=== PATIENT | female | born 1995 | race Caucasian/White ===

== ENCOUNTER 2018-02-28 16:37 | Emergency (ER) | payer SELFPAY ==
[~2018-02-28] VITALS: Ht 170.2 cm; Wt 90.9 kg
[2018-02-28 16:48] VITALS: Ht 170.2 cm; Wt 90.9 kg
[2018-02-28] MEDS ORDERED: TORADOL10 MG PO (20:57)
[2018-02-28 21:05] VITALS: BP 132/79
== END 2018-02-28 21:05 | disposition home or self-care (01) ==
LOC: D.ER 16:37
DX: S61.211A Laceration without foreign body of left index finger without damage to nail, initial encounter (principal); W26.0XXA Contact with knife, initial encounter; Y93.89 Activity, other specified; Y92.019 Unspecified place in single-family (private) house as the place of occurrence of the external cause

== ENCOUNTER 2018-12-09 00:10 | Emergency (ER) | payer OTHER ==
[~2018-12-09] VITALS: Ht 170.2 cm; Wt 100.5 kg
[~2018-12-09 00:10] MED LIST: TORADOL10 MG PO
[2018-12-09 00:16] VITALS: Ht 170.2 cm; Wt 100.5 kg
[2018-12-09 02:07] LABS: APPEARANCE CLEAR (CLEAR); BILIRUBIN NEGATIVE (NEGATIVE); COLOR YELLOW (YELLOW); GLUCOSE NEGATIVE (NEGATIVE); KETONE SMALL mg/dL (NEGATIVE); NITRITE NEGATIVE (NEGATIVE); PROTEIN NEGATIVE (NEGATIVE); SPECIFIC GRAVITY 1.015 (1.005-1.020); UROBILINOGEN NORMAL (NORMAL)
[2018-12-09] MEDS ORDERED: HYDROCODON-ACE1 EAC7 PO (02:28)
[2018-12-09 02:41] VITALS: BP 121/72
== END 2018-12-09 02:41 | disposition home or self-care (01) ==
LOC: D.ER 00:10
PROVIDERS: Emergency Medicine
DX: O26.891 Other specified pregnancy related conditions, first trimester (principal); Z3A.01 Less than 8 weeks gestation of pregnancy; R10.30 Lower abdominal pain, unspecified

== ENCOUNTER 2019-01-15 14:00 | Emergency (ER) | payer OTHER ==
[~2019-01-15] VITALS: Ht 170.2 cm; Wt 90.9 kg
[~2019-01-15 14:00] MED LIST changes: +HYDROCODON-ACE1 EAC7 PO
[2019-01-15 14:36] VITALS: Ht 170.2 cm; Wt 90.9 kg
[2019-01-15] MEDS ORDERED: PRENAVITE1 TAB PO (14:42)
[2019-01-15 15:22] LABS: APPEARANCE CLEAR (CLEAR); BILIRUBIN NEGATIVE (NEGATIVE); COLOR YELLOW (YELLOW); GLUCOSE NEGATIVE (NEGATIVE); KETONE NEGATIVE (NEGATIVE); NITRITE NEGATIVE (NEGATIVE); PROTEIN NEGATIVE (NEGATIVE); UROBILINOGEN NORMAL (NORMAL)
[2019-01-15 15:23] LABS: RED CELLS - URINE OCC /hpf (0-5); WHITE CELLS - URINE 0-5 /hpf (0-5)
[2019-01-15 15:24] LABS: BACTERIA FEW /hpf (NONE SEEN); EPITHELIAL CELLS 0-5 /hpf (0-5)
[2019-01-15 17:35] LABS: ALBUMIN 3.2 g/dL (3.4-5.0); ALKALINE PHOSPHATASE 56 U/L (46-116); ALT (SGPT) 26 U/L (10-68); BILIRUBIN - TOTAL 0.24 mg/dL (0.2-1.3); CALC OSMOLALITY 273 mosm/kg (275-300); CALCIUM 8.9 mg/dL (8.5-10.1); CARBON DIOXIDE 25.3 mmol/L (21.0-32.0); CHLORIDE - SERUM 105 mmol/L (98-107); CREATININE - SERUM 0.5 mg/dL (0.6-1.3); GLUCOSE 82 mg/dL (74-106); POTASSIUM - SERUM 3.9 mmol/L (3.5-5.1); PROTEIN - SERUM 6.8 g/dL (6.4-8.2); SODIUM 139 mmol/L (136-145); UREA NITROGEN 4 mg/dL (7-18); eGFR NON AFRICAN AMERICAN > 90 mL/min (90-120)
[2019-01-15 17:47] LABS: BASOPHILS 0.1 % (0-2); EOSINOPHILS 0.8 % (0-7); HEMATOCRIT 36.6 % (36.0-48.0); HEMOGLOBIN 11.8 g/dL (12-16); IMMATURE GRANULOCYTES 0.3 % (0-5); LYMPHOCYTES 18.5 % (15-50); MCH 25.1 pg (26.0-34.0); MCHC 32.2 g/dL (31.0-37.0); MCV 77.7 fL (80.0-100.0); MEAN PLATELET VOLUME 10.5 fL (7.4-10.4); MONOCYTES 5.6 % (2-11); NEUTROPHILS 74.7 % (40-80); PLATELET COUNT 213 10x3/uL (130-400); RBC 4.71 10x6/uL (4.00-5.40); RDW 16.7 % (11.5-14.5); WBC 10.3 10x3/uL (4.8-10.8)
[2019-01-15 17:57] LABS: HCG - QUANTITATIVE (MATERNAL) 33703 mIU/mL
[2019-01-15 19:34] VITALS: BP 129/70
== END 2019-01-15 19:34 | disposition home or self-care (01) ==
LOC: D.ER 14:00
PROVIDERS: Family Medicine
DX: O26.891 Other specified pregnancy related conditions, first trimester (principal); Z3A.14 14 weeks gestation of pregnancy; R10.9 Unspecified abdominal pain

== ENCOUNTER 2019-03-06 20:18 | Outpatient (CLI) | payer OTHER ==
[2019-01-15 14:36] VITALS: BMI 31.4
[~2019-03-06 20:18] MED LIST changes: +PRENAVITE1 TAB PO
[2019-03-06 21:48] LABS: APPEARANCE HAZY (CLEAR); BILIRUBIN NEGATIVE (NEGATIVE); COLOR YELLOW (YELLOW); GLUCOSE NEGATIVE (NEGATIVE); KETONE NEGATIVE (NEGATIVE); NITRITE NEGATIVE (NEGATIVE); PROTEIN NEGATIVE (NEGATIVE); UROBILINOGEN NORMAL (NORMAL)
[2019-03-06 21:52] LABS: RED CELLS - URINE OCC /hpf (0-5); WHITE CELLS - URINE 0-5 /hpf (0-5)
[2019-03-06 21:53] LABS: BACTERIA FEW /hpf (NONE SEEN); EPITHELIAL CELLS 0-5 /hpf (0-5)
== END 2019-03-06 22:10 | disposition home or self-care (01) ==
LOC: D.LDO 20:18
PROVIDERS: ATTEND Obstetrics & Gynecology
DX: O26.899 Other specified pregnancy related conditions, unspecified trimester (principal); Z3A.00 Weeks of gestation of pregnancy not specified; R42 Dizziness and giddiness; R10.9 Unspecified abdominal pain

== ENCOUNTER 2019-03-28 22:51 | Outpatient (CLI) | payer OTHER ==
[2019-01-15 14:36] VITALS: BMI 31.4
[2019-03-28 23:44] LABS: APPEARANCE HAZY (CLEAR); BILIRUBIN NEGATIVE (NEGATIVE); COLOR YELLOW (YELLOW); GLUCOSE NEGATIVE (NEGATIVE); KETONE LARGE mg/dL (NEGATIVE); NITRITE NEGATIVE (NEGATIVE); PROTEIN NEGATIVE (NEGATIVE); UROBILINOGEN NORMAL (NORMAL)
[2019-03-28 23:47] LABS: BACTERIA MODERATE /hpf (NONE SEEN); EPITHELIAL CELLS 0-5 /hpf (0-5); RED CELLS - URINE 0-5 /hpf (0-5)
== END 2019-03-29 01:45 ==
LOC: D.LDO 22:51 → D.LD 22:54 → D.LDO 03-29 01:45
PROVIDERS: ATTEND Student in an Organized Health Care Education/Training Program
DX: O26.892 Other specified pregnancy related conditions, second trimester (principal); Z3A.24 24 weeks gestation of pregnancy; R05 Cough; R50.9 Fever, unspecified

== ENCOUNTER 2019-06-19 23:50 | Outpatient (CLI) | payer OTHER ==
[2019-01-15 14:36] VITALS: BMI 31.4
[2019-06-20 00:54] LABS: UDS - AMPHET NEGATIVE QUAL (NEGATIVE); UDS - BARB POSITIVE QUAL (NEGATIVE); UDS - BENZO NEGATIVE QUAL (NEGATIVE); UDS - COCAINE NEGATIVE QUAL (NEGATIVE); UDS - OPIATE NEGATIVE QUAL (NEGATIVE); UDS - PCP NEGATIVE QUAL (NEGATIVE); UDS - THC NEGATIVE QUAL (NEGATIVE)
[2019-06-20 00:56] LABS: APPEARANCE CLEAR (CLEAR); BILIRUBIN NEGATIVE (NEGATIVE); COLOR YELLOW (YELLOW); GLUCOSE NEGATIVE (NEGATIVE); KETONE NEGATIVE (NEGATIVE); NITRITE NEGATIVE (NEGATIVE); PROTEIN NEGATIVE (NEGATIVE); SPECIFIC GRAVITY 1.015 (1.005-1.020); UROBILINOGEN NORMAL (NORMAL)
[2019-06-20 00:57] LABS: BACTERIA FEW /hpf (NEGATIVE); EPITHELIAL CELLS 0-5 /hpf (0-5); RED CELLS - URINE NONE SEEN /hpf (0-5); WHITE CELLS - URINE 0-5 /hpf (NEGATIVE)
== END 2019-06-20 01:30 | disposition home or self-care (01) ==
LOC: D.LD 23:50 → D.LDO 23:50
PROVIDERS: ATTEND Obstetrics & Gynecology
DX: O26.899 Other specified pregnancy related conditions, unspecified trimester (principal); Z3A.00 Weeks of gestation of pregnancy not specified; R10.9 Unspecified abdominal pain

== ENCOUNTER → 2019-07-01 13:54 | Outpatient (CLI) | payer OTHER ==
[2019-01-15 14:36] VITALS: BMI 31.4
== END | disposition home or self-care (01) ==
LOC: D.LDO 13:54
PROVIDERS: ATTEND Student in an Organized Health Care Education/Training Program
DX: O26.893 Other specified pregnancy related conditions, third trimester (principal); Z3A.38 38 weeks gestation of pregnancy; M54.9 Dorsalgia, unspecified

== ENCOUNTER 2019-07-04 20:13 | Inpatient (IN) | payer OTHER ==
[~2019-07-04] VITALS: Ht 167.6 cm; Wt 95.5 kg
[2019-07-04] MEDS ORDERED: PROTONIX40 MG PO (21:15)
[2019-07-04 22:51] LABS: HEMATOCRIT 34.9 % (36.0-48.0); HEMOGLOBIN 10.7 g/dL (12-16); MCH 22.8 pg (26.0-34.0); MCHC 30.7 g/dL (31.0-37.0); MCV 74.4 fL (80.0-100.0); MEAN PLATELET VOLUME 11.6 fL (7.4-10.4); RBC 4.69 10x6/uL (4.00-5.40); RDW 15.4 % (11.5-14.5); WBC 13.2 10x3/uL (4.8-10.8)
[2019-07-04 23:04] LABS: UDS - AMPHET NEGATIVE QUAL (NEGATIVE); UDS - BARB NEGATIVE QUAL (NEGATIVE); UDS - BENZO NEGATIVE QUAL (NEGATIVE); UDS - COCAINE NEGATIVE QUAL (NEGATIVE); UDS - OPIATE NEGATIVE QUAL (NEGATIVE); UDS - PCP NEGATIVE QUAL (NEGATIVE); UDS - THC NEGATIVE QUAL (NEGATIVE)
[2019-07-05 00:54] VITALS: BP 132/79; Ht 167.6 cm; Wt 95.5 kg
[2019-07-05 15:15] LABS: UDS - AMPHET NEGATIVE QUAL (NEGATIVE); UDS - BARB NEGATIVE QUAL (NEGATIVE); UDS - BENZO NEGATIVE QUAL (NEGATIVE); UDS - COCAINE NEGATIVE QUAL (NEGATIVE); UDS - OPIATE NEGATIVE QUAL (NEGATIVE); UDS - PCP NEGATIVE QUAL (NEGATIVE); UDS - THC NEGATIVE QUAL (NEGATIVE)
--- NOTE | 2019-07-06 02:40 | NUR ---
PT RINGS CALL LIGHT REQUESTING A PERIPAD CHANGE. THIS RN TO BEDSIDE. PT ASSISTED W/PERIPAD CHANGE. CURRENT PERIPAD W/SMALL RUBRA LOCHIA NOTED. CLEAN PAD PLACED. PT DENIES PAIN OR NEEDS AT THIS TIME. SIG OTHER REMAINS AT BEDSIDE.
--- NOTE | 2019-07-06 04:30 | NUR ---
ROUNDS MADE. PT RESTING QUIETLY W/EYES CLOSED TO RT SIDE. RESP EVEN AND UNLABORED. PT LEFT UNDISTURBED AT THIS TIME.
--- NOTE | 2019-07-06 06:07 | NUR ---
PT. UP TO BATHROOM TO VOID. GAIT STEADY. DENIES ANY NUMBNESS IN LEGS. VOIDED LARGE AMT. SELF JONELLE CARE TAUGHT AND PT. STATES UNDERSTANDING. JONELLE PADS AND PANTIES APPLIED. LOCHIA RUBRA SCANT TO MOD. FUNDUS FIRM AND MIDLINE U/2.
[2019-07-06 07:00] LABS: BASOPHILS 0.1 % (0-2); EOSINOPHILS 0.6 % (0-7); HEMATOCRIT 29.3 % (36.0-48.0); IMMATURE GRANULOCYTES 0.4 % (0-5); LYMPHOCYTES 12.7 % (15-50); MCH 22.7 pg (26.0-34.0); MCHC 30.7 g/dL (31.0-37.0); MCV 73.8 fL (80.0-100.0); MEAN PLATELET VOLUME 11.3 fL (7.4-10.4); MONOCYTES 7.9 % (2-11); NEUTROPHILS 78.3 % (40-80); PLATELET COUNT 251 10x3/uL (130-400); RBC 3.97 10x6/uL (4.00-5.40); RDW 15.2 % (11.5-14.5); WBC 15.8 10x3/uL (4.8-10.8)
--- NOTE | 2019-07-06 07:12 | NUR ---
no bedside shift report give as patient is currently sleeping. pt left undisturbed at this time to allow for rest.
[2019-07-06 08:11] LABS: RAPID PLASMA REAGIN Non Reactive (Non Reactive)
[2019-07-06 10:15] VITALS: BP 123/78
--- NOTE | 2019-07-06 10:15 | NUR ---
AM ASSESSMENT COMPLETED. SEE FLOWSHEET. PT DENIES HEAVY BLEEDING OR PASSING CLOTS. PT STATES SHE WOULD LIKE TO WAIT TO TAKE ANY KIND OF PAIN MEDICATION, AND SHE WANTS TO THINK ABOUT TAKING THE MMR VACCINE. VACCINE INFORMATION SHEETS PROVIDED TO PT. SIG OTHER ASLEEP ON SOFA. PT DENIES ALL OTHER NEEDS AT THIS TIME.
--- NOTE | 2019-07-06 11:00 | NUR ---
DR. TORRES ON UNIT, MD TO ROOM TO SPEAK WITH PT. MD WILL DISCHARGE PT HOME TOMORROW.
--- NOTE | 2019-07-06 12:43 | NUR ---
PT SLIP DUMPER LIGHT. REQUESTS AND RECEIVES BABY BLANKET AND FORMULA.
--- NOTE | 2019-07-06 15:00 | NUR ---
PT IN SHOWER, CLEAN LINENS PROVIDED. PT IS DRESSED IN OWN CLOTHING. DENIES ALL OTHER NEEDS AT THIS TIME. SRUP X2, CALL LIGHT AND PHONE WITHIN REACH.
--- NOTE | 2019-07-06 15:54 | NUR ---
PT HAS CALLED OUT [employer] LIGHT REQUESTING PAIN MEDICATION FOR ABD CRAMPING, AND LOWER BACK PAIN. EMAR REVIEWED AND EXPLAINED TO PT IBUPROFEN IS ORDERED FOR PAIN. PT AGREES. IBUPROFEN 600MG ONE PO GIVEN FOR C/O ABD CRAMPING, AND LOWER BACK PAIN. SIG OTHER ON SOFA FEEDING AT THIS TIME. PT DENIES ALL OTHER NEEDS. SRUP X2, CALL LIGHT AND PHONE WITHIN REACH.
--- NOTE | 2019-07-06 19:16 | NUR ---
BEDSIDE REPORT RECEIVED FROM OFF GOING NURSE IVA RIVAS. PT RESTING IN BED WITH INFANT IN HER ARMS. NO DISTRESS. PT DENIES CAITLIN COMPLAINTS OR NEEDS AT THIS TIME. INSTRUCTED PT TO NOTIFY NURSE WITH ANY PROBLEMS, NEEDS, OR CONCERNS. VERBALIZED UNDERSTANDING. BED IN LOW POSITION. SR UP X2. CALL LIGHT WITHIN PTS REACH.
[2019-07-06 20:00] VITALS: BP 131/78
--- NOTE | 2019-07-06 20:00 | NUR ---
PT RESTING IN BED HOLDING . VS OBTAINED. PT DENIES ANY COMPLAINTS OR NEEDS AT THIS TIME. BED IN LOW POSITION. SR UP X2. CALL LIGHT WITHIN PTS REACH.
--- NOTE | 2019-07-06 21:00 | NUR ---
PT RESTING IN BED WITH INFANT. S/O IN ROOM. ASSESSMENT COMPLETE PER FLOWSHEET. BBS CLEAR. ABDOMEN SOFT. FUNDUS FIRM AND AND 1 BELOW UMBILICUS. ACTIVE BS X4 QUADRANTS. PT REPORTS HAVING A SMALL AMOUNT OF LOCHIA. TRACE EDEMA NOTED TO BLE. POC DISCUSSED. QUESTIONS ANSWERED. PT INSTRUCTED TO NOTIFY NURSE WITH ANY PROBLEMS, NEEDS, OR CONCERNS. VERBALIZED UNDERSTANDING. BED IN LOW POSITION. SR UP X2. CALL LIGHT WITHIN PTS REACH.
--- NOTE | 2019-07-06 22:16 | NUR ---
PT RESTING IN BED WITH INFANT. PT DENIES ANY COMPLAINTS. PADS AND PANTIES PROVIDED. INSTRUCTED PT TO NOTIFY NURSE WITH ANY PROBLEMS, NEEDS, OR CONCERNS. VERBALIZED UNDERSTANDING. BED IN LOW POSITION. SR UP X2. CALL LIGHT WITHIN PTS REACH.
--- NOTE | 2019-07-07 00:30 | NUR ---
PT RESTING IN BED HOLDING . NO DISTRESS NOTED. PT DENIES ANY COMPLAINTS OR NEEDS AT THIS TIME. INSTRUCTED PT TO NOTIY NURSE WITH ANY PROBLEMS, NEEDS, OR CONCERNS. VERBALIZED UNDERSTANDING. BED IN LOW POSITION. SR UP X2. CALL LIGHT WITHIN PTS REACH.
--- NOTE | 2019-07-07 02:04 | NUR ---
PT RESTING IN BED FEEDING . S/O AT BEDSIDE. PT C/O ABD CRAMPING. MOTRIN 600MG GIVEN. LEMON [place] SODA PROVIDED. NO OTHER REQUEST MADE. INSTRUCTED PT TO NOTIFY NURSE IF MEDICATION NOT EFFECTIVE OR WITH ANY OTHER PROBLEMS, NEEDS, OR CONCERNS. VERBALIZED UNDERSTANDING. BED IN LOW POSITION. SR UP X2. CALL LIGHT WITHIN PTS REACH.
--- NOTE | 2019-07-07 02:45 | NUR ---
PT RESTING IN BED HOLDING . PT REPORTS HER PAIN IS BETTER. PT APPEARS TIRED AND HAS NOT SLEPT AT ALL DURING THIS SHIFT. PT ENCOURAGED TO SEND INFANT BACK TO NBN SO SHE AND S/O CAN GET SOME SLEEP. BOTH VERBALIZED THAT THEY WOULD LIKE TO DO THIS. INSTRUCTED PT TO CALL NBN WHEN SHE AWAKENS AND THEY (NBN) WILL BRING BACK TO THEM. PT ALSO INSTRUCTED TO NOTIFY NURSE WITH ANY PROBLEMS, NEEDS, OR CONCERNS. VERBALIZED UNDERSTANDING. BED IN LOW POSITION. SR UP X2. CALL LIGHT WITHIN PTS REACH.
--- NOTE | 2019-07-07 03:00 | NUR ---
INFANT BACK TO NBN VIA OPEN CRIB. NO DISTRESS NOTED.
--- NOTE | 2019-07-07 04:20 | NUR ---
PT RESTING IN BED WITH EYES CLOSED. NO DISTRESS NOTED. BED IN LOW POSITION. SR UP X2. CALL LIGHT WITHIN PTS REACH.
--- NOTE | 2019-07-07 06:05 | NUR ---
PT RESTING IN BED WITH EYES CLOSED. NO DISTRESS NOTED. BED IN LOW POSITION. SR UP X2. CALL LIGHT WITHIN PTS REACH.
[2019-07-07 07:11] VITALS: BP 131/78
--- NOTE | 2019-07-07 07:11 | NUR ---
BEDSIDE REPORT RECEIVED, AM ASSESSMENT COMPLETED. PT SITTING UPRIGHT IN BED, SMILING, RESP EVEN AND UNLABORED, LUNGS CTAB, HEART RRR NO MURMUR RUBS OR CLICKS AUSCULTATED, ABD SOFT AND MILDLY TENDER TO LIGHT PALPATION, FUNDUS FIRM AT U/2 AND MIDLINE, LOCHIA RUBRA LIGHT AMOUNT, PT DENIES CLOTS AT THIS TIME, SELF PERFORMS PERICARE WITH BETADINE/WATER WASH POST VOID, VOIDS WITHOUT DIFFICULTY, + FLATUS, MELGAR FREELY, NEGATIVE NATHALIA'S SIGN B LE, PEDAL PULSES STRONG AND EQUAL BILATERALLY. CALL LIGHT IN EASY REACH, REVIEWED PLAN OF CARE, STATES UNDERSTANDING OF ALL INFORMATION PROVIDED, WILL MONITOR.
--- NOTE | 2019-07-07 08:13 | NUR ---
ROUNDS COMPLETED, CONSUMED 80% BREAKFAST TRAY, DENIES NEEDS OR CONCERNS, WILL MONITOR. CALL LIGHT IN EASY REACH.
--- NOTE | 2019-07-07 09:14 | NUR ---
ROUNDS COMPLETED, PT SITTING UPRIGHT IN BED, FAMILY VISITING, NAD NOTED. LEMON [place] SODA PROVIDED UPON REQUEST, NAD NOTED. NO OTHER NEEDS VOICED, STATES DOES NOT WANT RUBELLA VACCINATION AFTER REVIEWING NON IMMUNE STATUS AND RATIONALE FOR ADMINISTRATION. WILL MONITOR.
--- NOTE | 2019-07-07 10:35 | NUR ---
ROUNDS COMPLETED, NAD NOTED, RESP EVEN AND UNLABORED, CALL LIGHT IN EASY REACH.
--- NOTE | 2019-07-07 11:35 | NUR ---
REVIEWED DISCHARGE INSTRUCTIONS WITH PT, HANDOUTS PROVIDED FOR REVIEW AT HOME, QUESTIONS ANSWERED, UNIT PP GIFT BOX PROVIDED TO PT, PT STATES UNDERSTANDING OF ALL INFORMATION REVIEWED, DENIES PAIN OR NEEDS AT THIS TIME, CALL LIGHT IN EASY REACH OF PT, CONTINUE TO MONITOR.
--- NOTE | 2019-07-07 12:29 | NUR ---
lunch tray delivered to room per dietary, pt denies needs or concerns at this time, continue to monitor. nad noted.
--- NOTE | 2019-07-07 13:30 | NUR ---
ROUNDS COMPLETED, FAMILY TO ROOM, CONSUMED 100% LUNCH PROVIDED. NAD NOTED. CONTINUE TO MONITOR.
--- NOTE | 2019-07-07 14:20 | NUR ---
ROUNDS COMPLETED, NAD NOTED. DENIES NEEDS OR CONCERNS. WILL MONITOR.
--- NOTE | 2019-07-07 15:18 | NUR ---
ROUNDS COMPLETED, PT LYING IN BED WITH SIGNIFICANT OTHER, RESP EVEN AND UNLABORED, IN ROLLING CRIB ADJACENT TO BED ALSO NAD NOTED AND RESP EVEN AND UNLABORED. WILL MONITOR.
--- NOTE | 2019-07-07 16:50 | NUR ---
ROUNDS COMPLETED, NO NEEDS VOICED AT THIS TIME. WILL MONITOR.
--- NOTE | 2019-07-07 17:03 | NUR ---
PT USING CALL LIGHT TO REQUEST LEMON [place] SODA WITH ICE; SAME PROVIDED. PT STATES NO OTHER NEEDS AND CALL LIGHT REMAINS WITHIN EASY REACH OF PT. CONTINUE TO MONITOR.
--- NOTE | 2019-07-07 18:27 | NUR ---
rounds completed, denies needs/concerns, resp even and unlabored. call light in easy reach.
--- NOTE | 2019-07-07 19:47 | NUR ---
RN TO BEDSIDE FOR SHIFT ASSESSMENT. PT REFUSES ASSESSMENT AND V/S CHECK. STATES "I THOUGHT I WAS ALREADY DISCHARGED AND JUST WAITING FOR MY BABY TO BE ABLE TO GO." IN SIGNIFICANT OTHERS ARMS. DENIES PAIN. SPRITE PROVIDED PER REQUEST. WILL CONTINUE TO MONITOR. BED IN LOW POSITION WITH SRUP X2. CALL LIGHT AND PHONE WITHIN REACH.
--- NOTE | 2019-07-07 20:31 | NUR ---
ROUNDS MADE. DENIES NEEDS AND PAIN. BED IN LOW POSITION WITH SRUP X2. CALL LIGHT AND PHONE WITHIN REACH. RESTING IN OPEN CRIB AT BEDSIDE.
--- NOTE | 2019-07-07 21:25 | NUR ---
REINFORCED DISCHARGE TEACHING TO PT AND SIGNIFICANT OTHER. VERBALIZES UNDERSTANDING AND DENIES QUESTIONS. PT REPORTS THAT SHE HAS COPIES OF DISCHARGE INSTRUCTIONS. OFF UNIT IN W/C WITH SECURED IN CARSEAT TO AWAITING PRIVATE VECHILE IN STABLE CONDITION.
== END 2019-07-07 21:25 | disposition home or self-care (01) | DRG 807 ==
LOC: D.LD 20:13
PROVIDERS: Student in an Organized Health Care Education/Training Program; ADMIT Obstetrics & Gynecology; ATTEND Obstetrics & Gynecology
PROC: 10E0XZZ Delivery of Products of Conception, External Approach (ICD-10-PCS; principal; 2019-07-05)
PROC: 3E033VJ Introduction of Other Hormone into Peripheral Vein, Percutaneous Approach (ICD-10-PCS; 2019-07-05)
PROC: 10907ZC Drainage of Amniotic Fluid, Therapeutic from Products of Conception, Via Natural or Artificial Opening (ICD-10-PCS; 2019-07-05)
DX: O99.824 Streptococcus B carrier state complicating childbirth (principal); Z37.0 Single live birth; Z3A.38 38 weeks gestation of pregnancy; O69.81X0 Labor and delivery complicated by cord around neck, without compression, not applicable or unspecified; O71.82 Other specified trauma to perineum and vulva

== ENCOUNTER 2019-09-25 11:40 | Inpatient (IN) | payer MEDICAID ==
[~2019-09-25] VITALS: Ht 167.6 cm; Wt 86.2 kg
[~2019-09-25 11:40] MED LIST changes: +PROTONIX40 MG PO
[2019-09-25 12:37] LABS: CALC OSMOLALITY 270 mosm/kg (275-300); CALCIUM 9.1 mg/dL (8.5-10.1); CARBON DIOXIDE 26.6 mmol/L (21.0-32.0); CHLORIDE - SERUM 102 mmol/L (98-107); CREATININE - SERUM 0.7 mg/dL (0.6-1.3); GLUCOSE 106 mg/dL (74-106); SODIUM 136 mmol/L (136-145); UREA NITROGEN 9 mg/dL (7-18); eGFR NON AFRICAN AMERICAN > 90 mL/min (90-120)
[2019-09-25 12:46] LABS: BASOPHILS 0.1 % (0-2); EOSINOPHILS 0 % (0-7); HEMATOCRIT 39.5 % (36.0-48.0); HEMOGLOBIN 11.6 g/dL (12-16); IMMATURE GRANULOCYTES 0.3 % (0-5); LYMPHOCYTES 8.3 % (15-50); MCH 21.5 pg (26.0-34.0); MCHC 29.4 g/dL (31.0-37.0); MCV 73.3 fL (80.0-100.0); MEAN PLATELET VOLUME 10.4 fL (7.4-10.4); MONOCYTES 2.3 % (2-11); RBC 5.39 10x6/uL (4.00-5.40); WBC 19.3 10x3/uL (4.8-10.8)
[2019-09-25 12:47] LABS: ALBUMIN 3.6 g/dL (3.4-5.0); ALKALINE PHOSPHATASE 83 U/L (30-120); ALT (SGPT) 18 U/L (10-68); AMYLASE - SERUM 56 U/L (25-115); LIPASE 108 U/L (73-393); PROTEIN - SERUM 7.8 g/dL (6.4-8.2); TROPONIN-I < 0.017 ng/mL (0.000-0.060)
[2019-09-25 12:52] LABS: HCG SERUM NEGATIVE (NEGATIVE)
[2019-09-25 12:59] LABS: PLATELET COUNT 425 10x3/uL (130-400)
[2019-09-25 13:12] VITALS: BP 136/83
[2019-09-25 13:13] LABS: BILIRUBIN NEGATIVE (NEGATIVE); GLUCOSE NEGATIVE (NEGATIVE); KETONE MODERATE mg/dL (NEGATIVE); NITRITE NEGATIVE (NEGATIVE); SPECIFIC GRAVITY 1.005 (1.005-1.020); UROBILINOGEN NORMAL (NORMAL)
[2019-09-25 13:14] LABS: BACTERIA FEW /hpf (NEGATIVE); EPITHELIAL CELLS 0-5 /hpf (0-5); WHITE CELLS - URINE OCC /hpf (NEGATIVE)
[2019-09-25 13:15] LABS: AMORPHOUS SEDIMENT >1+ /lpf (NONE SEEN)
[2019-09-25 13:16] LABS: RED CELLS - URINE OCC /hpf (0-5)
[2019-09-25 17:32] VITALS: BP 149/97
--- NOTE | 2019-09-25 18:50 | NUR ---
REPORT CALLED TO [facility]
--- NOTE | 2019-09-25 19:01 | NUR ---
PT ARRIVED ON UNIT VIA STRETCHER ESCORTED BY ER NURSE. POSITIONED IN BED FOR COMFORT AND ORIENTED TO ROOM AND CALL LIGHT. IV FLUIDS CONTINUED FROM ER.
[2019-09-25 20:00] VITALS: BP 147/93
--- NOTE | 2019-09-25 20:35 | NUR ---
GAVE DILAUDID 1 MG IVP AND ZOFRAN 4 MG IVP FOR C/O SEVERE ABDOMINAL PAIN AND NAUSEA. WILL MONITOR FOR EFFECTIVENESS.
--- NOTE | 2019-09-25 21:00 | NUR ---
CALLED DR BRICEÑO TO CONFIRM WHEN SURGERY IS TAKING PLACE...PT HAVING LAP CHOLI ON TUESDAY AM. MAY CONTINUE ON CLEAR LIQUID DIET TONIGHT.
[2019-09-25 21:39] VITALS: BP 147/93; BMI 30.7
[2019-09-25] MEDS ORDERED: CIPRO500 MG PO (21:50)
--- NOTE | 2019-09-25 21:54 | NUR ---
ADMISSION ASSESSMENT AND HISTORY COMPLETE.
[2019-09-26] VITALS: BP 131/90
[2019-09-26 04:00] VITALS: BP 136/82
[2019-09-26 04:32] LABS: BASOPHILS 0.1 % (0-2); EOSINOPHILS 0.3 % (0-7); HEMATOCRIT 36.4 % (36.0-48.0); HEMOGLOBIN 10.6 g/dL (12-16); IMMATURE GRANULOCYTES 0.2 % (0-5); MCH 21.4 pg (26.0-34.0); MCHC 29.1 g/dL (31.0-37.0); MCV 73.5 fL (80.0-100.0); MEAN PLATELET VOLUME 10.2 fL (7.4-10.4); MONOCYTES 9.1 % (2-11); NEUTROPHILS 73.3 % (40-80); RBC 4.95 10x6/uL (4.00-5.40); RDW 15.9 % (11.5-14.5)
[2019-09-26 04:48] LABS: PLATELET COUNT 327 10x3/uL (130-400)
[2019-09-26 04:53] LABS: ALBUMIN 2.8 g/dL (3.4-5.0); ALKALINE PHOSPHATASE 72 U/L (30-120); ALT (SGPT) 18 U/L (10-68); AMYLASE - SERUM 49 U/L (25-115); BILIRUBIN - TOTAL 0.39 mg/dL (0.2-1.3); CALC OSMOLALITY 277 mosm/kg (275-300); CALCIUM 8.5 mg/dL (8.5-10.1); CARBON DIOXIDE 27.7 mmol/L (21.0-32.0); CHLORIDE - SERUM 108 mmol/L (98-107); CREATININE - SERUM 0.7 mg/dL (0.6-1.3); GLUCOSE 96 mg/dL (74-106); LIPASE 106 U/L (73-393); POTASSIUM - SERUM 3.7 mmol/L (3.5-5.1); PROTEIN - SERUM 6.4 g/dL (6.4-8.2); SODIUM 141 mmol/L (136-145); UREA NITROGEN 5 mg/dL (7-18); eGFR NON AFRICAN AMERICAN > 90 mL/min (90-120)
--- NOTE | 2019-09-26 08:00 | NUR ---
RESTING IN BED, NO DISTRESS NOTED, AWAITING SURGERY TOMORROW, WILL BE NPO AFTER TONIGHT
[2019-09-26 09:53] VITALS: BP 141/92
[2019-09-26 10:05] VITALS: BMI 30.6
[2019-09-26 10:34] VITALS: Ht 167.6 cm; Wt 86.2 kg
[2019-09-26 13:11] VITALS: BP 145/91
--- NOTE | 2019-09-26 14:42 | NUR ---
PT AWARE OF NEED FOR URINE
[2019-09-26 17:02] VITALS: BP 151/94
--- NOTE | 2019-09-26 18:00 | NUR ---
PAGE SENT OUT TO DR VASQUEZ, PT REQUEST MORE PAIN MEDS
[2019-09-26 20:00] VITALS: BP 138/72
--- NOTE | 2019-09-26 20:00 | NUR ---
ALERT SITTING UP IN BED, MULTIPLE FAMILY AND FRIENDS AT BEDSIDE, C/O ABD PAIN AND REQUESTING DILAUDID AT 2030 WHEN CAN HAVE IT AGAIN, SEE SHIFT ASSESSMENT, CALL LIGHT IN REACH
[2019-09-27] VITALS (10 sets, daily range): BP systolic 108–145; BP diastolic 63–92
[2019-09-27 05:54] LABS: BASOPHILS 0.2 % (0-2); EOSINOPHILS 0.8 % (0-7); HEMATOCRIT 34.9 % (36.0-48.0); HEMOGLOBIN 10.1 g/dL (12-16); IMMATURE GRANULOCYTES 0.2 % (0-5); MCH 21.4 pg (26.0-34.0); MCHC 28.9 g/dL (31.0-37.0); MCV 74.1 fL (80.0-100.0); MEAN PLATELET VOLUME 10.4 fL (7.4-10.4); MONOCYTES 12.7 % (2-11); NEUTROPHILS 66.1 % (40-80); PLATELET COUNT 291 10x3/uL (130-400); RBC 4.71 10x6/uL (4.00-5.40)
[2019-09-27 06:29] LABS: ALBUMIN 2.7 g/dL (3.4-5.0); ALKALINE PHOSPHATASE 68 U/L (30-120); ALT (SGPT) 16 U/L (10-68); BILIRUBIN - TOTAL 0.38 mg/dL (0.2-1.3); CALC OSMOLALITY 273 mosm/kg (275-300); CALCIUM 8.2 mg/dL (8.5-10.1); CARBON DIOXIDE 27.6 mmol/L (21.0-32.0); CHLORIDE - SERUM 104 mmol/L (98-107); CREATININE - SERUM 0.6 mg/dL (0.6-1.3); GLUCOSE 71 mg/dL (74-106); POTASSIUM - SERUM 3.8 mmol/L (3.5-5.1); PROTEIN - SERUM 5.8 g/dL (6.4-8.2); SODIUM 140 mmol/L (136-145); UREA NITROGEN 5 mg/dL (7-18); eGFR NON AFRICAN AMERICAN > 90 mL/min (90-120)
--- NOTE | 2019-09-27 07:30 | NUR ---
PATIENT IN SHOWER DOING A HIBICLEANS. FRESH SHEETS PROVIDED.
--- NOTE | 2019-09-27 08:15 | NUR ---
IV THERAPY DC'ED FROM RIGHT WRIST. DRAINAGE. I ATTEMPTED 2X. C. DOYLE BUNCHN GOT A LEFT WRIST ON 2ND ATTEMPT WITH A 22G. CL IN REACH. WCTM
[2019-09-27] MEDS ORDERED: HYDROCODON-ACE1 EA10 PO (13:24)
--- NOTE | 2019-09-27 13:55 | NUR ---
PATIENT BACK FROM SURGERY. 4 LAP SITES NOTED ON MID ABD. CL IN REACH. STATES PAIN LEVEL IS A 9 OUT OF 10. GROGGY. TRYING TO EAT LUNCH. NOTIFIED KRISTIE THE BOYFRIEND THAT SHE WAS BACK. BETO WAS WITH HIM SO SHE KNOWS WELL. WCTM
--- NOTE | 2019-09-27 15:12 | NUR ---
FAMILY IN ROOM. QUESTIONS ABOUT DIET ANSWERED. CL IN REACH. VS STABLE. WCTM
--- NOTE | 2019-09-27 16:49 | OP ---
PATIENT NAME: BLANCA VALDOVINOS MEDICAL RECORD: [id number] :97 LOCATION:[id number] ADMISSION DATE:09/26/19 SURGEON: ABY BRICEÑO MD DATE OF OPERATION: 09/27/2019 PREOPERATIVE DIAGNOSIS: Acute cholecystitis. POSTOPERATIVE DIAGNOSIS: Acute cholecystitis. PROCEDURE: Laparoscopic cholecystectomy. SURGEON: Aby Briceño MD REPORT OF PROCEDURE: The patient's abdomen was prepped and draped in sterile fashion. A cutdown was made on the superior aspect of the umbilicus, 0 Vicryls were placed in the fascia bilaterally and the fascia was incised with 15-blade. I then used electrocautery to enter the abdominal cavity. A 12-mm trocar was then placed within the abdomen. Under direct visualization, a 5-mm trocar was placed in the epigastrium and 2 more 5-mm trocars were placed in the right subcostal region. The gallbladder was noted to be markedly inflamed and distended. We had to access the gallbladder to remove some of its contents in order to be able to grasp it more easily. There was return of clear mucousy fluid consistent with hydrops gallbladder. At this point, the cystic artery and cystic duct were dissected free. The patient actually had 2 branches of cystic artery, which were clipped proximally and distally and ligated in standard fashion. The gallbladder was then taken off the liver bed using electrocautery and placed into an Endo Catch bag. Any bleeding from the liver bed was treated with electrocautery. We irrigated out the right upper quadrant and assured there was no sign of any bleeding or bile leakage. At this point, the ports and insufflation were then removed and the gallbladder was taken out through the umbilicus. The umbilical fascia was closed with interrupted 0 Vicryls times 3. The wounds were irrigated out with normal saline and infused with 10 mL of 0.25% Marcaine with epinephrine. The skin incisions were all closed with subcutaneous 5-0 Monocryl and dressed appropriately. COMPLICATIONS: None. CONDITION: Stable. ANESTHESIA: General endotracheal and local. BLOOD LOSS: 30 mL. TRANSINT:[id number] Voice Confirmation ID: [id number] DOCUMENT ID: [id number] ABY BRICEÑO MD at 1648 CC: [id number] DICTATION DATE: 09/27/19 1316 LAPPER: 09/27/19 1432 ADM IN [facility] [address] [address]
--- NOTE | 2019-09-27 18:12 | NUR ---
DISCHARGE INSTRUCTIONS GIVEN. PATIENT VERBALIZED UNDERSTANDING. WILL DC IV WHEN 1730 ABX IS FINISHED. BOYFRIENOz FLOWERS HERE.
--- NOTE | 2019-09-27 18:25 | NUR ---
IV THERAPY DC'ED FROM LEFT WRIST 22 G TIP INTACT. REFUSED WHEELCHAIR DOWN. FAMILY IN ROOM.
== END 2019-09-27 18:39 | disposition home or self-care (01) | DRG 418 ==
LOC: D.ER 11:40 → D.MS 17:19 → OBSVTIME 17:19 → D.MS 09-26 15:38
PROVIDERS: Emergency Medicine; Family Medicine; ADMIT Surgery; ATTEND Surgery
PROC: 0FT44ZZ Resection of Gallbladder, Percutaneous Endoscopic Approach (ICD-10-PCS; principal; 2019-09-27 11:30)
DX: K80.00 Calculus of gallbladder with acute cholecystitis without obstruction (principal); K82.1 Hydrops of gallbladder; K21.9 Gastro-esophageal reflux disease without esophagitis